=== PATIENT | female | born 1965 | race American Indian/Alaskan Native ===

== ENCOUNTER 2018-02-11 22:54 | Emergency (ER) | payer MEDICAID ==
--- NOTE | 2018-02-11 23:00 | EDM.PDOC ---
ED HPI GENERAL MEDICAL PROBLEM - General Stated Complaint: LT ANKLE PAIN Time Seen by Provider: 02/11/18 22:54 Source of Information: Reports: Patient, Family History Limitations: Reports: Physical Impairment (right ankle pain) - History of Present Illness INITIAL COMMENTS - FREE TEXT/NARRATIVE: 52 y.o.f came with her family in wheel chair one day after she twisted her left ankle with severe pain and swelling of her left lat ankle. She is not able to apply weight onto here left leg. No other injuries. No N/V/D no dizziness or any other constitutional issues BP 121/78 RR 20 Pulse ox 95% on RA Temp 37.1 Pulse 85 Onset Date: 02/10/18 Onset Time: 08:00 Duration: Day(s):, Getting Worse, Intermittent Location: Reports: Lower Extremity, Left (ankle) Quality: Reports: Burning, Dull, Pressure, Throbbing Severity: Moderate Improves with: Reports: Rest Worsens with: Reports: Movement Context: Reports: Trauma - Related Data Allergies Allergy/AdvReac Type Severity Reaction Status Date / Time lisinopril Allergy Difficulty Verified 09/27/16 17:35 Breathing Penicillins Allergy Difficulty Verified 09/27/16 17:35 Breathing Home Meds: Home Meds Hydrochlorothiazide 25 mg PO DAILY 09/12/13 [History] Ibuprofen [Advil] 400 mg PO Q4H PRN 09/12/13 [History] Losartan [Cozaar] 25 mg PO DAILY 09/12/13 [History] Omeprazole 20 mg PO DAILY PRN 09/12/13 [History] SitaGLIPtin [Januvia] 100 mg PO DAILY 09/12/13 [History] Gabapentin [Neurontin] 600 mg PO QID 07/18/16 [History] Simvastatin [Zocor] 5 mg PO DAILY 07/18/16 [History] Venlafaxine [Effexor XR] 150 mg PO DAILY 07/18/16 [History] buPROPion [Wellbutrin XL] 300 mg PO DAILY 07/18/16 [History] busPIRone [Buspar] 15 mg PO BID 07/18/16 [History] Ondansetron [Zofran ODT] 4 mg PO Q6H PRN #10 tab.dis 09/25/16 [Rx] Ondansetron [Zofran ODT] 4 mg PO Q6H PRN #7 tab.dis 09/27/16 [Rx] Potassium Chloride 20 meq PO TID #30 cap.er 09/27/16 [Rx] Sulfamethoxazole/Trimethoprim [Bactrim Ds Tablet] 1 each PO BID #14 tablet 09/27 [Rx] Past Medical History HEENT History: Reports: Other (See Below) Other HEENT History: myopia; presbyopia-both Cardiovascular History: Reports: Hypertension Respiratory History: Reports: None Gastrointestinal History: Reports: Cholelithiasis, Diverticulosis, GERD 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: 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: Reports: Addiction, Anxiety, Depression Other 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: Hx ETOH abuse Endocrine/Metabolic History: Reports: Diabetes, Type II, Vitamin D Deficiency Other Endocrine/Metabolic History: fatty liver disease Dermatologic History: Reports: Other (See Below) Other Dermatologic History: dermatitis - Past Surgical History Female Surgical History: Reports: Tubal Ligation Musculoskeletal Surgical History: Reports: Arthroscopic Procedure, Shoulder Surgery Social & Family History - Family History Family Medical History: Noncontributory - Caffeine Use Caffeine Use: Reports: Coffee Review of Systems - Review of Systems Review Of Systems: See Below Constitutional: Reports: No Symptoms Eyes: Reports: No Symptoms Ears: Reports: No Symptoms Nose: Reports: No Symptoms Mouth/Throat: Reports: No Symptoms Respiratory: Reports: No Symptoms Cardiovascular: Reports: No Symptoms GI/Abdominal: Reports: No Symptoms Genitourinary: Reports: No Symptoms Musculoskeletal: Reports: Joint Swelling (left ankle) Skin: Reports: No Symptoms Neurological: Reports: No Symptoms Psychiatric: Reports: No Symptoms ED EXAM, GENERAL - Physical Exam Exam: See Below Exam Limited By: No Limitations General Appearance: Alert, WD/WN, Mild Distress Eye Exam: Bilateral Eye: Abnormal EOM Ears: Normal External Exam Ear Exam: Bilateral Ear: Auricle Normal Nose: Normal Inspection, Normal Mucosa, No Blood Throat/Mouth: Normal Inspection, Normal Lips, Normal Voice, No Airway Compromise Head: Atraumatic, Normocephalic Neck: Normal Inspection, Supple, Non-Tender Respiratory/Chest: No Respiratory Distress, Lungs Clear, Normal Breath Sounds, Chest Non-Tender Cardiovascular: Normal Peripheral Pulses, Regular Rate, Rhythm, No Edema Peripheral Pulses: 1+: Brachial (L) GI/Abdominal: Normal Bowel Sounds, Soft, Non-Tender, No Organomegaly, No Abnormal Bruit, No Mass (Female) Exam: Deferred Rectal (Female) Exam: Deferred Back Exam: Normal Inspection Extremities: Pedal Edema, Joint Swelling (left ankle), Limited Range of Motion Neurological: Alert, Oriented, CN II-XII Intact, Normal Cognition, Abnormal Gait (r ankle pain) Psychiatric: Normal Affect, Normal Mood Skin Exam: Warm, Dry, Intact, Normal Color, No Rash Lymphatic: No Adenopathy ED TRAUMA EXTREMITY PROCEDURES - Splinting Left Lower Extremity Pre-Procedure NV Status: Normal Post-Procedure NV Status: Normal Splint Material: Plaster Splint Design: Posterior Applied & Form Fitted By: Provider Provider Post-Splint Application NV Check: NV Status Normal, Good Position Complications: No Course - Vital Signs Text/Narrative:: 52 y.o.f came with her family in wheel chair one day after she twisted her left ankle with severe pain and swelling of her left lat ankle. She is not able to apply weight onto here left leg. No other injuries. No N/V/D no dizziness or any other constitutional issues BP 121/78 RR 20 Pulse ox 95% on RA Temp 37.1 Pulse 85 PE: 52 y.o.f with left ankle pain after trauma Imaging: left dist fibula nondisplaced Fx, official report is pending Impression: nondisplaced Fx, left fibula Tx: Ice.Rest, posterior splint left lower extr., Percocet, crutches Reexam: Improved, <2 sec cap refill. Plan: D/C with instructions Last Recorded V/S: Last Vital Signs Temp 37.0 C 02/12/18 00:03 Pulse 88 02/12/18 00:03 Resp 16 02/12/18 00:03 BP 124/71 02/12/18 00:03 Pulse Ox 96 02/12/18 00:03 - Orders/Labs/Meds Orders: Active Orders 24 hr Category Date Time Status Ankle Min 3V Lt [CR] Stat Exams 02/11/18 22:59 Taken Meds: Medications Discontinued Medications Generic Name Dose Route Start Last Admin Trade Name Freq PRN Reason Stop Dose Admin Oxycodone/Acetaminophen 1 tab 02/11/18 23:48 02/11/18 23:57 Percocet 325-5 Mg PO 02/11/18 23:49 1 tab ONETIME STA Administration Departure - Departure Time of Disposition: 23:53 Disposition: Home, Self-Care 01 Condition: Good Clinical Impression: Ankle fracture, left Qualifiers: Encounter type: initial encounter Fracture type: closed Qualified Code(s): S82.892A - Other fracture of left lower leg, initial encounter for closed fracture - Discharge Information Instructions: Crutch Use, Adult, [id number], Acetaminophen; Oxycodone tablets , Ankle Fracture Referrals: Jayant Ahumada MD [Primary Care Provider] - Art Kennedy DO [Physician] - Forms: ED Department Discharge Additional Instructions: Rest, ICE and elevation, Motrin every 8 hours with food, Percocet for severe pain only. Please f/u with Dr. Kennedy this monday, please make an appointment. Please come back if your symptoms get worse acutely. - My Orders Last 24 Hours: My Active Orders 02/11/18 22:59 Ankle Min 3V Lt [CR] Stat - Assessment/Plan Last 24 Hours: My Active Orders 02/11/18 22:59 Ankle Min 3V Lt [CR] Stat
[2018-02-11] MEDS ORDERED: Acetaminophen/oxyCODONE 325-5 MG Tab PO STA (23:48)
[2018-02-12] MEDS ORDERED: Acetaminophen/oxyCODONE 325-5 MG Tab PO ONE (00:01)
[2018-02-12 00:05] VITALS: BP 124/71
--- NOTE | 2018-02-12 11:39 | CR ---
INDICATION: Rolled ankle out. LEFT ANKLE: Three views of the left ankle revealed a hairline fracture obliquely through the lateral malleolus with overlying soft tissue swelling. Anatomic position and alignment is suggested. The ankle mortise appears to be intact otherwise. A moderate sized plantar calcaneal spur is also noted. MTDD
== END 2018-02-12 00:40 | disposition home or self-care (01) ==
LOC: FB.ED 22:54
DX: S82.65XA Nondisplaced fracture of lateral malleolus of left fibula, initial encounter for closed fracture (principal); I10 Essential (primary) hypertension; K21.9 Gastro-esophageal reflux disease without esophagitis; F41.9 Anxiety disorder, unspecified; F32.9 Major depressive disorder, single episode, unspecified; E11.9 Type 2 diabetes mellitus without complications; Z79.899 Other long term (current) drug therapy; Z88.0 Allergy status to penicillin; Z88.8 Allergy status to other drugs, medicaments and biological substances; X50.1XXA Overexertion from prolonged static or awkward postures, initial encounter
CPT/HCPCS: 73610; 99283; A9270

== ENCOUNTER 2020-04-22 23:13 | Emergency (ER) | payer MEDICAID ==
[2020-04-22] MEDS ORDERED: Aspirin 81 MG Tab.Chew PO ONE (23:41)
[2020-04-22] MEDS ORDERED: Alum Hydroxide/Mag Hydroxide 15 ML, Lidocaine 2% 15 ML PO ONE ×2 (23:44)
[2020-04-22] MEDS ORDERED: Ondansetron 8 MG Tab.DIS PO ONE (23:56)
--- NOTE | 2020-04-23 00:44 | EDM.PDOC ---
ED HPI GENERAL MEDICAL PROBLEM - General Stated Complaint: SOB; CHEST PAIN Time Seen by Provider: 04/23/20 00:30 Source of Information: Reports: Patient, Family History Limitations: Reports: No Limitations - History of Present Illness INITIAL COMMENTS - FREE TEXT/NARRATIVE: Patient presented to the ED because of chesta pain which started at 1930 tonight. The pain is pleuritic type, 7/10, with associated nausea but no vomiting. There is no fever,chills, cough/cold, dyspnea or diaphoresis. She has been a lot of stress recently because of family issues. Chest Pain Score (Numeric/FACES): 7 - Related Data Allergies Allergy/AdvReac Type Severity Reaction Status Date / Time lisinopril Allergy Difficulty Verified 02/12/18 07:04 Breathing Penicillins Allergy Difficulty Verified 02/12/18 07:04 Breathing Home Meds: Home Meds Ibuprofen [Advil] 400 mg PO Q4H PRN 09/12/13 [History] Losartan [Cozaar] 25 mg PO DAILY 09/12/13 [History] Omeprazole 20 mg PO DAILY PRN 09/12/13 [History] SitaGLIPtin [Januvia] 100 mg PO DAILY 09/12/13 [History] hydroCHLOROthiazide [Hydrochlorothiazide] 25 mg PO DAILY 09/12/13 [History] Gabapentin [Neurontin] 600 mg PO QID 07/18/16 [History] Simvastatin [Zocor] 5 mg PO DAILY 07/18/16 [History] Venlafaxine [Effexor XR] 150 mg PO DAILY 07/18/16 [History] buPROPion [Wellbutrin XL] 300 mg PO DAILY 07/18/16 [History] Amitriptyline [Elavil] 25 mg PO ASDIRECTED 02/12/18 [History] Venlafaxine HCl [Venlafaxine ER] 75 mg PO DAILY 02/12/18 [History] buPROPion [buPROPion XL] 150 mg PO DAILY 02/12/18 [History] rOPINIRole [Requip] 1 mg PO DAILY 02/12/18 [History] traMADol [Ultram] 50 mg PO TID #90 tablet 03/30/18 [Rx] Past Medical History HEENT History: Reports: Other (See Below) Other HEENT History: myopia; presbyopia-both Cardiovascular History: Reports: Hypertension Respiratory History: Reports: None Gastrointestinal History: Reports: Cholelithiasis, Diverticulosis, 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: 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: Reports: Addiction, Anxiety, Depression Other 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: Hx ETOH abuse Endocrine/Metabolic History: Reports: Diabetes, Type II, Vitamin D Deficiency Other Endocrine/Metabolic History: fatty liver disease Dermatologic History: Reports: Other (See Below) Other Dermatologic History: dermatitis - Past Surgical History Female Surgical History: Reports: Tubal Ligation Musculoskeletal Surgical History: Reports: Arthroscopic Procedure, Shoulder Surgery Social & Family History - Family History Family Medical History: Noncontributory - Caffeine Use Caffeine Use: Reports: Coffee ED ROS GENERAL - Review of Systems Review Of Systems: See Below Constitutional: Reports: No Symptoms HEENT: Reports: No Symptoms Respiratory: Reports: No Symptoms Cardiovascular: Reports: Chest Pain Endocrine: Reports: No Symptoms GI/Abdominal: Reports: No Symptoms : Reports: No Symptoms Musculoskeletal: Reports: No Symptoms Skin: Reports: No Symptoms Neurological: Reports: No Symptoms Psychiatric: Reports: No Symptoms Hematologic/Lymphatic: Reports: No Symptoms Immunologic: Reports: No Symptoms ED EXAM, GENERAL - Physical Exam Exam: See Below Exam Limited By: No Limitations General Appearance: Alert, No Apparent Distress Ears: Normal External Exam, Normal Canal, Hearing Grossly Normal Nose: Normal Inspection, Normal Mucosa Throat/Mouth: Normal Inspection, Normal Lips, Normal Teeth, Normal Gums Head: Atraumatic, Normocephalic Neck: Normal Inspection, Supple, Non-Tender, Full Range of Motion Respiratory/Chest: No Respiratory Distress, Lungs Clear, Normal Breath Sounds Cardiovascular: Normal Peripheral Pulses, Regular Rate, Rhythm, No Edema, No Gallop, No JVD, No Murmur, No Rub GI/Abdominal: Normal Bowel Sounds, Soft, Non-Tender, No Organomegaly (Female) Exam: Normal External Exam, Normal Speculum Exam, Normal Bimanual Exam Back Exam: Normal Inspection, Full Range of Motion Extremities: Normal Inspection, Normal Range of Motion, Non-Tender, No Pedal Edema, Normal Capillary Refill Neurological: Alert, Oriented, CN II-XII Intact, Normal Cognition, Normal Gait Course - Vital Signs Text/Narrative:: lba/EKG was discussed with patient EKG-NSR Trop-neg ASA 324 mg po x1 Zofran 8 mg ODT Aristes 5/325, 2 mg po x1 Last Recorded V/S: Last Vital Signs Temp 36.6 C 04/23/20 01:29 Pulse 72 04/23/20 01:29 Resp 18 04/23/20 01:29 BP 132/68 04/23/20 01:29 Pulse Ox 99 04/23/20 01:29 - Orders/Labs/Meds Orders: Active Orders 24 hr Category Date Time Status EKG 12 Lead [EK] Routine Ther 04/22/20 23:41 Ordered Labs: Laboratory Tests 04/22/20 04/22/20 04/22/20 Range/Units 23:55 23:55 23:55 WBC 9.4 (4.5-12.0) X10-3/uL RBC 4.84 (3.23-5.20) x10(6)uL Hgb 13.7 (11.5-15.5) g/dL Hct 41.2 (30.0-51.3) % MCV 85.1 (80-96) fL MCH 28.2 (27.7-33.6) pg MCHC 33.1 (32.2-35.4) g/dL RDW 13.4 (11.5-15.5) % Plt Count 183 (125-369) X10(3)uL MPV 7.8 (7.4-10.4) fL Neut % (Auto) 56.8 (46-82) % Lymph % (Auto) 36.2 (13-37) % [place] % (Auto) 4.2 (4-12) % Eos % (Auto) 2 (1.0-5.0) % Baso % (Auto) 1 (0-2) % Neut # (Auto) 5.3 (1.6-8.3) # Lymph # (Auto) 3.4 (0.6-5.0) # [place] # (Auto) 0.4 (0.0-1.3) # Eos # (Auto) 0.2 (0.0-0.8) # Baso # (Auto) 0.1 (0.0-0.2) # Sodium 142 (135-145) mmol/L Potassium 2.9 L (3.5-5.3) mmol/L Chloride 103 (100-110) mmol/L Carbon Dioxide 30 (21-32) mmol/L BUN 15 (7-18) mg/dL Creatinine 0.7 (0.55-1.02) mg/dL Est Cr Clr Drug Dosing TNP Estimated GFR (MDRD) > 60 (>60) BUN/Creatinine Ratio 21.4 H (9-20) Glucose 172 H (80-116) mg/dL Calcium 8.7 (8.6-10.2) mg/dL Total Bilirubin 0.3 (0.1-1.3) mg/dL AST 114 H (5-25) IU/L ALT 54 H (12-36) U/L Alkaline Phosphatase 134 H (56-112) IU/L Troponin I 4.6 (4.0-60.3) pg/mL Total Protein 6.8 (6.0-8.0) g/dL Albumin 3.6 (3.5-5.2) g/dL Globulin 3.2 g/dL Albumin/Globulin Ratio 1.1 Meds: Medications Discontinued Medications Generic Name Dose Route Start Last Admin Trade Name Freq PRN Reason Stop Dose Admin Hydrocodone Bitart/Acetaminophen 2 tab 04/23/20 00:50 04/23/20 00:58 Aristes 325-5 Mg PO 04/23/20 00:51 2 tab NOW STA Administration Aspirin 324 mg 04/22/20 23:41 04/22/20 23:55 Aspirin PO 04/22/20 23:42 324 mg ONETIME ONE Administration Al Hydroxide/Mg Hydroxide 15 0 ml 04/22/20 23:44 04/22/20 23:56 ml/ Lidocaine HCl 15 ml PO 04/22/20 23:45 15 ml ONETIME ONE Administration Ondansetron HCl 8 mg 04/22/20 23:56 04/23/20 00:00 Zofran Odt PO 04/22/20 23:57 8 mg ONETIME ONE Administration Departure - Departure Time of Disposition: 00:35 Disposition: Home, Self-Care 01 Condition: Good Clinical Impression: Atypical chest pain Instructions: Nonspecific Chest Pain, Adult, [id number] Referrals: Jayant Ahumada MD [Primary Care Provider] - Forms: ED Department Discharge Additional Instructions: please read discharge instructions on atypical chest pain take ibuprofen 800 mg with tylenol 1000 mg every 8 hours as needed for pain follow up if symptoms persist Sepsis Event Note (ED) - Focused Exam Vital Signs: Vital Signs Temp Pulse Resp BP Pulse Ox 04/23/20 01:29 36.6 C 72 18 132/68 99 04/23/20 00:50 36.6 C 72 18 105/68 99 04/23/20 00:30 36.6 C 72 18 103/72 99 - My Orders Last 24 Hours: My Active Orders 04/22/20 23:41 EKG 12 Lead [EK] Routine - Assessment/Plan Last 24 Hours: My Active Orders 04/22/20 23:41 EKG 12 Lead [EK] Routine
[2020-04-23] MEDS ORDERED: Acetaminophen/HYDROcodone 325-5 MG Tab PO STA (00:50)
[2020-04-23 01:33] VITALS: BP 132/68; PULSE 72
== END 2020-04-23 00:55 | disposition home or self-care (01) ==
LOC: FB.ED 23:13
DX: R07.89 Other chest pain (principal); R07.81 Pleurodynia; I10 Essential (primary) hypertension; F41.9 Anxiety disorder, unspecified; F32.9 Major depressive disorder, single episode, unspecified; E11.9 Type 2 diabetes mellitus without complications; Z98.51 Tubal ligation status; Z88.0 Allergy status to penicillin; Z88.8 Allergy status to other drugs, medicaments and biological substances; Z79.899 Other long term (current) drug therapy
CPT/HCPCS: 36415; 80053; 84484; 85025; 93005; 99284; A9270; 99283

== ENCOUNTER 2020-05-20 07:59 | Day surgery (SDC) | payer MEDICAID ==
[~2020-05-20 07:59] MED LIST: Lactated Ringers 1,000 ML IV SCH; Sodium Chloride 0.9% 10 ML Syringe FLUSH PRN
[2020-05-20] MEDS ORDERED: Lidocaine 2% 5 ML SDV INJECT ONE (08:00)
[2020-05-20] MEDS ORDERED: Propofol 200 MG/20 ML SDV IV ONE (08:00)
--- NOTE | 2020-05-20 10:04 | PCM.OPNOTE ---
- General Post-Op/Procedure Note Date of Surgery/Procedure: 05/20/20 Operative Procedure(s): egd with biopsy. c scope Findings: gastritis diverticulosis internal hemorrhoids grade I Pre Op Diagnosis: hx of emesis. hx of hematochezia Post-Op Diagnosis: gastritis. diverticulosis. internal hemorrhoids grade I Anesthesia Technique: [facility] [place] Primary Surgeon: Dov Peralta Anesthesia Provider: Gerardo Kirkland Pathology: stomach Complications: None Condition: Good Free Text/Narrative:: see dictation.
--- NOTE | 2020-05-20 12:40 | OR ---
DATE OF OPERATION: 05/20/2020 SURGEON: Dov Perlata MD PROCEDURES PERFORMED: Esophagogastroduodenoscopy with cold forceps biopsy and colonoscopy. PREOPERATIVE DIAGNOSES: History of persistent emesis and hematochezia. POSTOPERATIVE DIAGNOSES: Gastritis without hemorrhage, sigmoid diverticulosis, and internal hemorrhoids. INDICATIONS FOR PROCEDURE: This is a 54-year-old white female, who is referred with a history of emesis. She was also noted to have some hematochezia. She was offered and accepted an EGD. DESCRIPTION OF OPERATION: After an excellent IV sedation was administered, the bite block was inserted. Flexible endoscope was passed without difficulty down the patient's esophagus into the stomach. Stomach was insufflated. Scope passed through the pylorus to the second portion of the duodenum and then slowly withdrawn. The following findings were noted: Duodenum was unremarkable. Stomach demonstrated some mild irritation and some biopsies were taken. The esophagus was unremarkable. Stomach was deflated and scope was removed and our attention was then turned to the patient's colon. Digital rectal exam was performed. No marked abnormality was noted. Flexible colonoscope was inserted and advanced to the cecum. Prep was excellent. The following findings were noted: Ascending colon, unremarkable. Transverse colon, unremarkable except for some scattered diverticula. Descending colon, scattered diverticula. Sigmoid, scattered diverticula. Rectum and anus, on retroflexion of the scope, she appears to have grade 1 internal hemorrhoids, which appeared to be the etiology of her bleeding. The patient tolerated the procedure well. Results will be sent to her via letter. /[id number]/[id number]
[2020-05-21 14:08] VITALS: BP 106/63; PULSE 76
== END 2020-05-20 10:58 | disposition home or self-care (01) ==
LOC: FB.SDS 07:59
PROVIDERS: ATTEND Surgery
DX: K57.31 Diverticulosis of large intestine without perforation or abscess with bleeding (principal); K29.51 Unspecified chronic gastritis with bleeding; K64.0 First degree hemorrhoids; Z01.812 Encounter for preprocedural laboratory examination; Z20.828 Contact with and (suspected) exposure to other viral communicable diseases; I10 Essential (primary) hypertension; E11.9 Type 2 diabetes mellitus without complications; F41.9 Anxiety disorder, unspecified; F32.9 Major depressive disorder, single episode, unspecified; Z90.49 Acquired absence of other specified parts of digestive tract; Z72.0 Tobacco use; Z79.899 Other long term (current) drug therapy; Z88.0 Allergy status to penicillin; Z88.8 Allergy status to other drugs, medicaments and biological substances
CPT/HCPCS: 00731-QZ; 88305; 88342; J2001; J2704; J7120; U0002

== ENCOUNTER 2023-05-20 20:51 | Emergency (ER) | payer MEDICARE, MEDICAID ==
[2023-05-20] MEDS ORDERED: Ondansetron 4 MG/2 ML SDV IM ONE (21:10)
[2023-05-20] MEDS ORDERED: Morphine 4 MG/ML VIAL IM ONE (21:10)
[2023-05-20 21:31] LABS: BASOPHILS ABSOLUTE AUTO 0.1 x10-3/uL (0.0-0.1); BASOPHILS PERCENT AUTO 1.2 % (0.2-1.5); EOSINOPHILS ABSOLUTE AUTO 0.1 x10-3/uL (0.0-0.8); EOSINOPHILS PERCENT AUTO 2.1 % (0.6-8.1); HEMATOCRIT 41.7 % (34.2-48.2); HEMOGLOBIN 14.2 g/dL (11.4-15.5); LYMPHOCYTES ABSOLUTE AUTO 1.4 x10-3/uL (1.0-4.4); LYMPHOCYTES PERCENT AUTO 19.4 % (18.4-52.1); MEAN CORPUSCULAR VOLUME 85.4 fL (76.7-100.5); MONOCYTES ABSOLUTE AUTO 0.4 x10-3/uL (0.3-1.0); MONOCYTES PERCENT AUTO 5.1 % (4.4-15.7); NEUTROPHILS ABSOLUTE AUTO 5.1 x10-3/uL (1.5-6.3); NEUTROPHILS PERCENT AUTO 72.2 % (30.8-76.2); PLATELET COUNT,PLT 197 x10(3)uL (151-488); RED BLOOD CELL COUNT 4.89 x10(6)uL (3.60-5.20); RED CELL DISTRIBUTION WIDTH 14.1 % (12.3-16.5)
[2023-05-20 21:37] LABS: CHLORIDE,CL 101 mmol/L (100-110); POTASSIUM,K 3.7 mmol/L (3.5-5.3); SODIUM,NA 137 mmol/L (135-145)
[2023-05-20 21:38] LABS: BLOOD UREA NITROGEN,BUN 13 mg/dL (7-18); BUN/CREATININE RATIO 18.6 (9-20); CALCIUM 9.1 mg/dL (8.6-10.2); CARBON DIOXIDE,CO2 28 mmol/L (21-32); CREATININE 0.7 mg/dL (0.55-1.02); ESTIMATED GFR 100 mL/min (>60); GLUCOSE RANDOM 109 mg/dL (80-116)
[2023-05-20 21:46] LABS: ALANINE AMINOTRANSFERASE,ALT 19 U/L (12-36); ALBUMIN 3.7 g/dL (3.5-5.2); ALKALINE PHOSPHATASE 149 IU/L (56-112); ASPARTATE AMNIOTRANSFERASE,AST 16 IU/L (5-25); BILIRUBIN TOTAL 0.5 mg/dL (0.1-1.3); PROTEIN TOTAL,TP 7.6 g/dL (6.0-8.0)
[2023-05-20 21:48] LABS: TROPONIN I 5.8 pg/mL (4.0-60.3)
[2023-05-20] MEDS ORDERED: Alum Hydroxide/Mag Hydroxide 15 ML, Lidocaine 2% 15 ML PO ONE ×2 (22:26)
[2023-05-20] MEDS ORDERED: HYDROmorphone 2 MG/ML SDV IM ONE (22:28)
[2023-05-20] MEDS ORDERED: hydrOXYzine HCl 50 MG/ML SDV IM ONE (22:28)
[2023-05-21 02:55] VITALS: BP 150/68; PULSE 80
[2023-05-21] MEDS ORDERED: Pantoprazole 40 MG Tab.CR PO SCH (06:00)
== END 2023-05-20 23:09 | disposition home or self-care (01) ==
LOC: FB.ED 20:51
DX: R11.2 Nausea with vomiting, unspecified (principal); R19.7 Diarrhea, unspecified; R10.13 Epigastric pain; I10 Essential (primary) hypertension; K21.9 Gastro-esophageal reflux disease without esophagitis; E11.9 Type 2 diabetes mellitus without complications; Z90.49 Acquired absence of other specified parts of digestive tract; Z88.0 Allergy status to penicillin; Z88.8 Allergy status to other drugs, medicaments and biological substances; Z79.899 Other long term (current) drug therapy; Z79.84 Long term (current) use of oral hypoglycemic drugs
CPT/HCPCS: 36415; 74176; 80053; 83690; 84484; 85025; 96372; 99284; A9270; J1170; J2270; J2405; J3410

== ENCOUNTER 2023-11-16 09:51 | Inpatient (IN) | payer MEDICAID, MEDICARE ==
[2023-11-16] MEDS: Acetaminophen 325 MG Tab PO ONE (10:40)
[2023-11-16] MEDS ORDERED: Piperacillin/Tazobactam 4.5 GM in Sodium Chloride 0.9% 100 ML IV ONE (11:23)
[2023-11-16] MEDS ORDERED: Acetaminophen 500 MG Tab PO PRN (11:26)
[2023-11-16 11:31] LABS: MEAN CORPUSCULAR HGB CONC 33.4 g/dL (31.9-34.8)
[2023-11-16 11:33] LABS: HEMATOCRIT 36.4 % (34.2-48.2); HEMOGLOBIN 12.1 g/dL (11.4-15.5); MEAN CORPUSCULAR HEMOGLOBIN 27.9 pg (23.9-33.9); MEAN CORPUSCULAR VOLUME 83.6 fL (76.7-100.5); PLATELET COUNT,PLT 141 x10(3)uL (151-488); RED BLOOD CELL COUNT 4.35 x10(6)uL (3.60-5.20); RED CELL DISTRIBUTION WIDTH 14.4 % (12.3-16.5); WHITE BLOOD CELL COUNT,WBC 14.4 x10-3/uL (3.0-10.3)
[2023-11-16 11:34] LABS: BLOOD UREA NITROGEN,BUN 13 mg/dL (7-18); BUN/CREATININE RATIO 18.6 (9-20); CALCIUM 7.9 mg/dL (8.6-10.2); CARBON DIOXIDE,CO2 25 mmol/L (21-32); CHLORIDE,CL 92 mmol/L (100-110); CREATININE 0.7 mg/dL (0.55-1.02); EST CRCL DRUG DOSING (CG) 74.72 mL/min; ESTIMATED GFR 100 mL/min (>60); GLUCOSE RANDOM 120 mg/dL (80-116); POTASSIUM,K 3.4 mmol/L (3.5-5.3); SODIUM,NA 127 mmol/L (135-145)
[2023-11-16] MEDS ORDERED: Albuterol 6.7 GM Inhaler INH PRN (11:35)
[2023-11-16] MEDS ORDERED: Acetaminophen 650 MG Supp RECTAL PRN (11:38)
[2023-11-16] MEDS ORDERED: Acetaminophen 325 MG Tab PO PRN (11:38)
[2023-11-16 11:46] LABS: A/G RATIO 0.6; ALANINE AMINOTRANSFERASE,ALT 19 U/L (12-36); ALBUMIN 2.6 g/dL (3.5-5.2); ALKALINE PHOSPHATASE 107 IU/L (56-112); ASPARTATE AMNIOTRANSFERASE,AST 18 IU/L (5-25); PROTEIN TOTAL,TP 6.7 g/dL (6.0-8.0)
[2023-11-16] MEDS: Sodium Chloride 0.9% 1,000 ML IV SCH ×2 (11:46→15:32)
[2023-11-16] MEDS: Cefepime 2 GM Vial IVPUSH SCH (11:46)
[2023-11-16] MEDS: metroNIDAZOLE/Normal Saline 500 MG in Premix Bag 1 BAG IV SCH (11:46)
[2023-11-16 11:51] LABS: BAND PERCENT MAN 8 % (0-6); LYMPHOCYTES PERCENT MAN 2 % (13-37); MONOCYTES PERCENT MAN 2 % (4-12); SEG NEUTROPHILS PERCENT MAN 88 % (46-82)
[2023-11-16] MEDS ORDERED: Piperacillin/Tazobactam 4.5 GM in Sodium Chloride 0.9% 100 ML IV SCH (12:00)
[2023-11-16] MEDS: Sodium Chloride 0.9% 10 ML Syringe FLUSH PRN (12:04)
[2023-11-16 12:07] LABS: INFLUENZA A NAA NEGATIVE (NEGATIVE); INFLUENZA B NAA NEGATIVE (NEGATIVE); RESPIRATORY SYNCYTIAL VIR NAA NEGATIVE (NEGATIVE)
[2023-11-16] MEDS ORDERED: Naloxone 0.4 MG/ML SDV IVPUSH PRN (12:10)
[2023-11-16 12:18] LABS: CORONAVIRUS COVID-19 NAA NEGATIVE (NEGATIVE)
[2023-11-16] MEDS: Morphine 2 MG/ML SYRINGE IVPUSH PRN (12:22)
[2023-11-16 12:49] LABS: BILIRUBIN,URINE NEGATIVE (NEGATIVE); GLUCOSE,URINE NORMAL (NORMAL); KETONES,URINE 15 mg/dL (NEGATIVE); LEUKOCYTE ESTERASE,URINE NEGATIVE (NEGATIVE); NITRITE,URINE NEGATIVE (NEGATIVE); OCCULT BLOOD,URINE LARGE (NEGATIVE); PROTEIN,URINE NEGATIVE (NEGATIVE); UROBILINOGEN,URINE NORMAL (NEGATIVE)
[2023-11-16 12:57] LABS: COLOR,URINE YELLOW (YELLOW)
[2023-11-16 12:58] LABS: APPEARANCE,URINE SLIGHTLY CLOUDY (CLEAR); BACTERIA,URINE FEW (NS); RBC,URINE 0-5 (0-5); SQUAMOUS EPITHELIAL CELLS,UR FEW (NS,R,O); WBC,URINE 0-5 (0-5)
[2023-11-16] MEDS: VANCOmycin 1.5 GM/300 ML 1.5 GM in Premix Bag 1 BAG IV ONE (13:26)
[2023-11-16] MEDS: Heparin Sodium 5,000 Units/ML Vial SUBCUT SCH (13:27)
[2023-11-16] MEDS: Acetaminophen/HYDROcodone 325-7.5 MG Tab PO PRN (13:28)
[2023-11-16] MEDS: Potassium Chloride 20 MEQ Tab.ER PO STA (13:28)
[2023-11-16] MEDS: Gabapentin 600 MG Tab PO SCH (13:29)
[2023-11-16] MEDS: Iopamidol 755 Mg/ML 100 ML Bottle IV SCH (13:46)
[2023-11-16 16:56] VITALS: BP 82/53; PULSE 75
[2023-11-16] MEDS: Norepinephrine Bit/D5W Premix 4 MG in Premix Bag 1 BAG IV SCH (17:31)
[2023-11-16] MEDS ORDERED: Cefepime 2 GM Vial IVPUSH SCH (19:30)
[2023-11-16] MEDS ORDERED: Nystatin Crm 15 GM Tube TOP SCH (21:00)
[2023-11-17] MEDS ORDERED: VANCOmycin 1 GM/200 ML 1 GM in Premix Bag 1 BAG IV SCH (01:00)
== END 2023-11-16 18:29 | DRG 871 ==
LOC: FB.MS 09:51
PROVIDERS: ADMIT Internal Medicine; ATTEND Internal Medicine
PROC: 3E03329 Introduction of Other Anti-infective into Peripheral Vein, Percutaneous Approach (ICD-10-PCS; principal; 2023-11-16)
PROC: 3E033XZ Introduction of Vasopressor into Peripheral Vein, Percutaneous Approach (ICD-10-PCS; 2023-11-16)
DX: A41.9 Sepsis, unspecified organism (principal); R65.21 Severe sepsis with septic shock; L03.115 Cellulitis of right lower limb; E87.1 Hypo-osmolality and hyponatremia; H54.7 Unspecified visual loss; I10 Essential (primary) hypertension; K21.9 Gastro-esophageal reflux disease without esophagitis; F41.9 Anxiety disorder, unspecified; F32.A Depression, unspecified; E11.9 Type 2 diabetes mellitus without complications; F17.210 Nicotine dependence, cigarettes, uncomplicated; E87.6 Hypokalemia; Z88.0 Allergy status to penicillin; Z88.8 Allergy status to other drugs, medicaments and biological substances; Z79.84 Long term (current) use of oral hypoglycemic drugs; Z79.51 Long term (current) use of inhaled steroids; Z79.899 Other long term (current) drug therapy; Z86.16 Personal history of COVID-19; Z90.49 Acquired absence of other specified parts of digestive tract; Z98.51 Tubal ligation status; Z98.890 Other specified postprocedural states; K76.0 Fatty (change of) liver, not elsewhere classified; Z91.148 Patient's other noncompliance with medication regimen for other reason
CPT/HCPCS: 0241U; 36415; 51702; 71046; 73701-RT; 80053; 81001; 83605; 85025; 87040; 99236; A9270-GY; J0692; J1644; J1836; J2270; J3370; J3490; J7030; Q9967